=== PATIENT | female | born 1985 | race Hispanic/Latino ===

== ENCOUNTER 2017-08-03 04:46 | Emergency (ER) | payer OTHER ==
[~2017-08-03] VITALS: Ht 149.9 cm; Wt 63.5 kg
[~2017-08-03 04:46] MED LIST: BENTYL20 M1 PO; DILAUDID2 MG PO; DOXYCYCLINE100 M3 PO; FLAG500 PO; FLEXERIL10 MG PO; LEVOTHYROXINE0.05 M1 PO; LYRICA75 MG PO; PERCOCET 325 MG1 TA2 PO; PERCOCET 325 MG1 TA3 PO; PERCOCET 325 MG1 TAB PO; PRENATAL VITAM1 EACH PO; TORADOL10 MG PO; VALIUM2 MG PO; VICODIN 500 MG-1 TAB PO; ZOFRAN4 M1 SL; [UNRECOGNIZED DRUG - OTHER] PO
--- NOTE | 2017-08-03 04:57 | ED GI/GU/ABDOMINAL COMPLAINT ---
History of Present Illness General Chief Complaint: Abdominal Pain/Flank Pain Stated Complaint: "LT SIDE ABD PAIN" Source: patient Exam Limitations: no limitations Vital Signs & Intake/Output Vital Signs & Intake/Output Vital Signs Date Time Temp Pulse Resp B/P B/P Pulse O2 O2 Flow FiO2 Mean Ox Delivery Rate 08/03 0646 98.0 60 18 106/60 99 Room Air 08/03 0454 97.9 82 18 121/78 99 Room Air Allergies Coded Allergies: NO KNOWN ALLERGIES (11/30/15) Reconcile Medications Dicyclomine HCl (Bentyl) 20 MG TABLET 1 TAB PO TID PRN ABDOMINAL PAIN Vit W-Ca,Fe,FA(<1 MG) ( Vitamins) 1 EACH TABLET 1 TAB PO DAILY (Reported) Triage Nurses Notes Reviewed? yes ? n Is pt currently ? No Onset: Gradual Duration: hour(s): Timing: recent history Quality/Severity: stabbing Location: left flank Radiation: no radiation Activities at Onset: none Modifying Factors: Worsens With: movement, palpation. Associated Symptoms: abdominal pain HPI: 32 yo woman presents with left flank pain x 5 hours. "I woke up and was just tossing and turning all night it was so painful... it radiates up into my back." She has no nausea, vomiting, diarrhea, vaginal discharge, dysuria, fever. She is otherwise well. (Rasheed SPANGLER,Dejon Sanchez) Past History Travel History Traveled to [place] past 21 day No Medical History Any Pertinent Medical History? 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 No (Rasheed SPANGLER,Dejon Sanchez) Review of Systems Review of Systems Constitutional: Reports: no symptoms. EENTM: Reports: no symptoms. Respiratory: Reports: no symptoms. Cardiovascular: Reports: no symptoms. GI: Reports: no symptoms. Genitourinary: Reports: no symptoms. Musculoskeletal: Reports: no symptoms. Skin: Reports: no symptoms. Neurological/Psychological: Reports: no symptoms. Hematologic/Endocrine: Reports: no symptoms. Immunologic/Allergic: Reports: no symptoms. All Other Systems: Reviewed and Negative (Rasheed SPANGLER,Dejon Sanchez) Physical Exam Physical Exam General Appearance: well developed/nourished, mild distress, moderate distress Head: atraumatic, normal appearance Eyes: Bilateral: normal appearance. Ears, Nose, Throat, Mouth: hearing grossly normal, moist mucous membrane Neck: normal inspection, supple, full range of motion, normal alignment Respiratory: normal breath sounds, chest non-tender, no respiratory distress, quiet respiration, lungs clear Cardiovascular: regular rate/rhythm, edema Gastrointestinal: normal bowel sounds, soft, non-tender, no organomegaly Pelvic: NORMAL MUCOSA, NO DISCHARGE, MILD LEFT ADNEXAL TENDERNESS. Back: normal inspection, normal range of motion Extremities: normal range of motion, evidence of injury Neurologic/Psych: no motor/sensory deficits, awake, alert, oriented x 3 Skin: intact, normal color, warm/dry Core Measures ACS in differential dx? No Sepsis Present: No Sepsis Focused Exam Completed? No (Rasheed SPANGLER,Dejon Sanchez) Progress Differential Diagnosis: appendicitis, biliary colic, cholecystitis, diverticulitis, gastritis, hepatitis, kidney stone Plan of Care: Orders Procedure Date/time Status TRICHOMONAS 08/03 06 Complete POTASSIUM HYDROXIDE (LUCRECIA) 08/03 625 Complete GENITAL CULTURE 08/03 625 Active CHLAMYDIA-GC DNA PROBE 08/03 625 Active LIPASE 08/03 456 Complete HEPATIC FUNCTION PANEL 08/03 456 Complete CBC WITHOUT DIFFERENTIAL 08/03 456 Complete BASIC METABOLIC PANEL 08/03 456 Complete AMYLASE 08/03 456 Complete URINE 08/03 455 Complete URINALYSIS 08/03 455 Complete Current Medications Sig/Efren Start time Last Medication Dose Stop Time Status Admin Morphine Sulfate 4 MG ONCE ONE 08/03 0845 UNVr (Morphine) 08/03 0846 Laboratory Tests 08/03/17 0525: Anion Gap 11, Estimated GFR > 60, BUN/Creatinine Ratio 24.3, Glucose 99, Calcium 9.8, Total Bilirubin 0.3, Direct Bilirubin 0.2, AST 16, ALT 15, Alkaline Phosphatase 99, Total Protein 7.7, Albumin 4.5, Amylase 53, Lipase 120, CBC w Diff NO MAN DIFF REQ, RBC 4.17 L, MCV 91.2, MCH 30.2, MCHC 33.2, RDW 14.7 H, MPV 8.1, Gran % 51.6, Lymphocytes % 38.7, Monocytes % 6.8, Eosinophils % 2.2, Basophils % 0.7, Absolute Granulocytes 3.3, Absolute Lymphocytes 2.5, Absolute Monocytes 0.4, Absolute Eosinophils 0.1, Absolute Basophils 0 08/03/17 0457: Urine Color YEL, Urine Clarity CLEAR, Urine pH 6.5, Ur Specific [place] 1.025, Urine Protein TRACE H, Urine Ketones NEG, Urine Nitrite NEG, Urine Bilirubin NEG, Urine Urobilinogen 1.0, Ur Leukocyte Esterase NEG, Ur Microscopic SEDIMENT EXAMINED, Urine RBC RARE, Urine WBC RARE, Ur Epithelial Cells FEW, Urine Bacteria FEW H, Urine Hemoglobin NEG, Urine Glucose NEG, Urine Test NEGATIVE Microbiology 08/03 634 GENITAL: GC DNA Probe - RECD 08/03 634 GENITAL: Chlamydia DNA Probe ([facility]) - RECD 08/03 634 GENITAL: LUCRECIA Preparation - COMP 08/03 634 GENITAL: Trichomonas Preparation - COMP 08/03 634 GENITAL: Genital Culture - RECD Diagnostic Imaging: Viewed by Me: CT Scan. Discussed w/RAD: CT Scan. Radiology Impression: PATIENT: LUIS MIGUEL GARRETT PRESENT AGE: 32 PATIENT ACCOUNT NO: [id number] : 84 LOCATION: [facility] [place] ORDERING PHYSICIAN: Dejon Iqbal MD SERVICE DATE: 08/03/17 EXAM TYPE: CAT - CT ABD & PELVIS W/O IV CONTRAS EXAMINATION: CT ABDOMEN AND PELVIS WITHOUT CONTRAST CLINICAL INFORMATION: Left flank pain COMPARISON: Ultrasound 2015. CT 09/30/2014. TECHNIQUE: Multidetector volumetric imaging was performed from the superior aspect of the liver through the pubic symphysis. Sagittal and coronal reformatted images were obtained on the technologist's workstation. DLP: 278 mGy-cm FINDINGS: LUNG BASES: The visualized lung bases are unremarkable. LIVER, GALLBLADDER, AND BILIARY TREE: The liver is normal in size, shape, and attenuation. No focal hepatic lesion or biliary ductal dilatation is present. The gallbladder is unremarkable with no evidence of radiopaque gallstones, gallbladder wall thickening, or obvious pericholecystic inflammatory changes. PANCREAS: Unremarkable. SPLEEN: Unremarkable. ADRENAL GLANDS: Unremarkable. KIDNEYS AND URETERS: The kidneys are normal in size, shape, and attenuation. No hydronephrosis, hydroureter, or calculi seen. No perinephric stranding. BLADDER: Unremarkable. GASTROINTESTINAL TRACT: The small and large bowel are unremarkable. The appendix is unremarkable. ABDOMINAL WALL: No significant hernia is appreciated. LYMPH NODES: Normal. VASCULAR: Unremarkable. PELVIC VISCERA: The uterus and adnexa are unremarkable. OSSEOUS STRUCTURES: Unremarkable. IMPRESSION: No acute findings of the abdomen or pelvis. No hydronephrosis or nephrolithiasis. No inflammatory changes DICTATED BY: Michael Mello MD DATE/TIME DICTATED:08/03/17542 HAND ENDBAND CUTTER: LONNIE DATE/TIME TRANSCRIBED:08/03/17542 CONFIDENTIAL, DO NOT COPY WITHOUT APPROPRIATE AUTHORIZATION. <Electronically signed in Other Vendor System> SIGNED BY: Michael Mello MD 08/03/17547 Initial ED EKG: none Hand-Off Endorsed To: Hong Alaniz MD Endorsed Time: 0700 Pending: ultrasound (Rasheed SPANGLER,Dejon Sanchez) Diagnostic Imaging: Viewed by Me: Ultrasound. Discussed w/RAD: Ultrasound. Radiology Impression: PATIENT: LUIS MIGUEL GARRETT PRESENT AGE: 32 PATIENT ACCOUNT NO: [id number] : 84 LOCATION: [facility] [place] ORDERING PHYSICIAN: Dejon Iqbal MD SERVICE DATE: 08/03/17 EXAM TYPE: US - US-TRANSVAGINAL EXAMINATION: US PELVIS CLINICAL INFORMATION: Left lower quadrant pain. Question ovarian torsion. Last menstrual period last Tuesday. History of endometriosis. 3 C-sections. Pelvic pain since midnight. COMPARISON: CT of the abdomen and pelvis of 08/31/2017 and pelvic ultrasound 12/01/2015. TECHNIQUE: Transabdominal and transvaginal pelvic ultrasound. FINDINGS: The uterus is normal in size and appearance, measuring 8.8 x 4.0 x 5.6 cm longitudinally, anteroposteriorly and transversely. The endometrial stripe thickness is normal, measuring 0.6 cm in thickness. No focal myometrial mass is seen. The ovaries are visualized and appear normal, with the right ovary measuring 2.2 x 1.3 x 2.7 cm for a calculated volume of 3.9 mL. A left adnexal follicle/cyst measures 1.6 x 0.9 x 1.6 cm. The left adnexa could not be seen due to prominent bowel gas. There is normal arterial and venous spectral waveforms at the right adnexa. No right-sided adnexal mass is seen. There is no significant pelvic free fluid. IMPRESSION: 1. Normal appearance of the uterus and right adnexa noting a right-sided 1.6 cm adnexal follicle/cyst. 2. The left adnexa could not be identified due to overlying bowel gas and therefore left- sided ovarian torsion could not be excluded. DICTATED BY: Nahomi Gibson MD DATE/TIME DICTATED:08/03/17824 HAND ENDBAND CUTTER:LONNIE DATE/TIME TRANSCRIBED:08/03/17824 CONFIDENTIAL, DO NOT COPY WITHOUT APPROPRIATE AUTHORIZATION. <Electronically signed in Other Vendor System> SIGNED BY: Nahomi Gibson MD 08/03/17 0837 Comments: Patient has been updated on lab, CAT scan and ultrasound results. Questions been answered. Patient is stable for discharge and she will follow-up with her sports medicine trainer. (Katty SPANGLER,Hong Wharton) Departure Departure Disposition: HOME OR SELF CARE Condition: Stable Clinical Impression Primary Impression: Abdominal pain Departure Forms: Customer Survey General Discharge Information (Rasheed SPANGLER,Dejon Sanchez) Departure Referrals: Demetrice Conde MD (PCP/Family) Eliceo SPANGLER,José Luis Sanchez Additional Instructions: FOLLOW UP WITH YOUR GYNOCOLOGIST' TAKE PERCOCET NEEDED FOR PAIN RETURN IF SYMPTOMS WORSEN OR FOR ANY CONCERNS Prescriptions: Current Visit Scripts Oxycodone HCl/Acetaminophen (Percocet 5-325 MG Tablet) 1-2 TAB PO Q6P PRN PAIN #16 TAB (Katty SPANGLER,Hong Wharton)
[2017-08-03 05:39] LABS: ABSOLUTE BASOPHIL COUNT 0 /CUMM (0.0-0.2); ABSOLUTE EOSINOPHIL COUNT 0.1 /CUMM (0.0-0.7); ABSOLUTE GRANULOCYTE CT 3.3 /CUMM (1.4-6.5); ABSOLUTE LYMPH COUNT 2.5 /CUMM (1.2-3.4); ABSOLUTE MONOCYTE COUNT 0.4 /CUMM (0.10-0.60); BASOPHIL % 0.7 % (0.0-2.0); EOSINOPHIL % 2.2 % (0-5); GRANULOCYTE % 51.6 % (42.2-75.2); MEAN CORPUSCULAR HGB 30.2 PG (27.0-31.0); MEAN CORPUSCULAR HGB CONC 33.2 G/DL (33.0-37.0); MEAN CORPUSCULAR VOLUME 91.2 FL (81.0-99.0); MEAN PLATELET VOLUME 8.1 FL (7.4-10.4); PLATELET COUNT 246 /CUMM (130-400); RBC DISTRIBUTION WIDTH 14.7 % (11.5-14.5); RED BLOOD CELL CT 4.17 /CUMM (4.20-5.40); WHITE BLOOD CELL COUNT 6.5 /CUMM (4.8-10.8)
--- NOTE | 2017-08-03 05:48 | CT SCAN REPORT ---
EXAMINATION: CT ABDOMEN AND PELVIS WITHOUT CONTRAST CLINICAL INFORMATION: Left flank pain COMPARISON: Ultrasound 03/22/2016. CT 09/30/2014. TECHNIQUE: Multidetector volumetric imaging was performed from the superior aspect of the liver through the pubic symphysis. Sagittal and coronal reformatted images were obtained on the technologist's workstation. DLP: 278 mGy-cm FINDINGS: LUNG BASES: The visualized lung bases are unremarkable. LIVER, GALLBLADDER, AND BILIARY TREE: The liver is normal in size, shape, and attenuation. No focal hepatic lesion or biliary ductal dilatation is present. The gallbladder is unremarkable with no evidence of radiopaque gallstones, gallbladder wall thickening, or obvious pericholecystic inflammatory changes. PANCREAS: Unremarkable. SPLEEN: Unremarkable. ADRENAL GLANDS: Unremarkable. KIDNEYS AND URETERS: The kidneys are normal in size, shape, and attenuation. No hydronephrosis, hydroureter, or calculi seen. No perinephric stranding. BLADDER: Unremarkable. GASTROINTESTINAL TRACT: The small and large bowel are unremarkable. The appendix is unremarkable. ABDOMINAL WALL: No significant hernia is appreciated. LYMPH NODES: Normal. VASCULAR: Unremarkable. PELVIC VISCERA: The uterus and adnexa are unremarkable. OSSEOUS STRUCTURES: Unremarkable. IMPRESSION: No acute findings of the abdomen or pelvis. No hydronephrosis or nephrolithiasis. No inflammatory changes
--- NOTE | 2017-08-03 08:37 | ULTRASOUND REPORT ---
EXAMINATION: US PELVIS CLINICAL INFORMATION: Left lower quadrant pain. Question ovarian torsion. Last menstrual period last Tuesday. History of endometriosis. 3 C-sections. Pelvic pain since midnight. COMPARISON: CT of the abdomen and pelvis of 08/31/2017 and pelvic ultrasound 12/01/2015. TECHNIQUE: Transabdominal and transvaginal pelvic ultrasound. FINDINGS: The uterus is normal in size and appearance, measuring 8.8 x 4.0 x 5.6 cm longitudinally, anteroposteriorly and transversely. The endometrial stripe thickness is normal, measuring 0.6 cm in thickness. No focal myometrial mass is seen. The ovaries are visualized and appear normal, with the right ovary measuring 2.2 x 1.3 x 2.7 cm for a calculated volume of 3.9 mL. A left adnexal follicle/cyst measures 1.6 x 0.9 x 1.6 cm. The left adnexa could not be seen due to prominent bowel gas. There is normal arterial and venous spectral waveforms at the right adnexa. No right-sided adnexal mass is seen. There is no significant pelvic free fluid. IMPRESSION: 1. Normal appearance of the uterus and right adnexa noting a right-sided 1.6 cm adnexal follicle/cyst. 2. The left adnexa could not be identified due to overlying bowel gas and therefore left-sided ovarian torsion could not be excluded.
[2017-08-03] MEDS ORDERED: PERCOCET 5-3251 EACH PO (08:44)
[2017-08-03 09:30] VITALS: BP 110/74
== END 2017-08-03 09:08 ==
LOC: ERH 04:46
PROVIDERS: Pediatrics
DX: R10.32 Left lower quadrant pain (principal)
CPT/HCPCS: 87070; 74176; 81001; 81025; 87491; 87591; 96361; 96374; 96375; 96376; J0131; J1885

== ENCOUNTER 2018-02-13 20:46 | Emergency (ER) | payer OTHER ==
[~2018-02-13] VITALS: Ht 149.9 cm; Wt 64.9 kg
[~2018-02-13 20:46] MED LIST changes: +PERCOCET 5-3251 EACH PO
[2018-02-13] MEDS ORDERED: INDOMETHACIN50 M1 PO (22:01)
--- NOTE | 2018-02-13 22:02 | ED UPPER/LOWER EXTREMITY COMPL ---
History of Present Illness General Chief Complaint: Lower Extremity Injury Stated Complaint: KNEE PAIN Source: patient Exam Limitations: no limitations Vital Signs & Intake/Output Vital Signs & Intake/Output Vital Signs Date Time Temp Pulse Resp B/P B/P Pulse O2 O2 Flow FiO2 Mean Ox Delivery Rate 02/13 2054 96.0 78 20 128/85 97 Room Air Allergies Coded Allergies: NO KNOWN ALLERGIES (11/30/15) Reconcile Medications Dicyclomine HCl (Bentyl) 20 MG TABLET 1 TAB PO TID PRN ABDOMINAL PAIN Indomethacin 50 MG CAPSULE 1 CAP PO TID KNEE PAIN with food Oxycodone HCl/Acetaminophen (Percocet 5-325 MG Tablet) 5 MG-325 MG TABLET 1-2 TAB PO Q6P PRN PAIN Vit W-Ca,Fe,FA(<1 MG) ( Vitamins) 1 EACH TABLET 1 TAB PO DAILY (Reported) Triage Note: PT TO ED C/O LEFT KNEE PAIN FOR 5+ MONTHS. WAS TOLD IN OCTOBER SHE HAD A TORN MENISCUS. DID NOT FOLLOW UP IT FELT A LITTLE BETTER. NOW WORSE AGAIN. NO RECENT INJURY. Triage Nurses Notes Reviewed? yes : No Patient currently breastfeeds: No HPI: Patient presents for evaluation of worsening knee pain over the past 2 months. Patient states that she was evaluated at a walk-in clinic about 2 months ago and was told that she likely has a torn meniscus. She was treated with a knee brace crutches and nonsteroidal anti-inflammatory medication and began to feel better. Although she was told to follow-up with an photo specialist, she did not because she was feeling better. However beginning about 2 weeks ago she had gradual worsening of the pain to the point now where it's severely painful and beginning to interfere with her activities of daily living. She is having trouble sleeping at night due to the pain. The pain feels like knee tightness and she gets occasional clicking and locking. She has been taking 800 mg of ibuprofen every 6 hours with only minor improvement. She denies associated fever redness or swelling of the knee. Past History Travel History Traveled to [place] past 21 day No Medical History Any Pertinent Medical History? 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 No Review of Systems Review of Systems Constitutional: Reports: no symptoms. EENTM: Reports: no symptoms. Respiratory: Reports: no symptoms. Cardiovascular: Reports: no symptoms. Gastrointestinal/Abdominal: Reports: no symptoms. Genitourinary: Reports: no symptoms. Musculoskeletal: Reports: see HPI. Skin: Reports: no symptoms. Neurological/Psychological: Reports: no symptoms. Hematologic/Endocrine: Reports: no symptoms. Immunological: Reports: no symptoms. All Other Systems: Reviewed and Negative Physical Exam Physical Exam General Appearance: see below Comments: Gen.: Well-nourished, well-developed, no acute respiratory distress. Head: Normocephalic, atraumatic. Eyes: Normal inspection bilaterally Ears: Normal inspection bilaterally Nose: Normal inspection Throat/mouth : Moist mucosa Neck: Supple, full range of motion, no goiter Heart: Regular rate and rhythm Lungs: Quiet respirations Back: Normal range of motion Extremities: Left knee: No erythema ecchymoses or obvious knee effusion. The knee is diffusely tender to palpation but is otherwise stable on examination. Patient is also tender over the medial and lateral collateral ligaments. Neurologic: Cranial nerves grossly intact, speech is clear Skin: warm and dry Psychiatric: Calm, cooperative, no apparent delusions or hallucinations Progress Differential Diagnosis: contusion, dislocation, fracture, sprain Plan of Care: Current Medications Sig/Efren Start time Last Medication Dose Stop Time Status Admin Indomethacin Sodium 50 MG ONCE ONE 02/13 2200 UNVr (Indocin 25 MG Cap) 02/13 2201 Departure Departure Disposition: HOME OR SELF CARE Condition: Stable Clinical Impression Primary Impression: Chronic meniscal tear of knee Qualifiers: Meniscus of knee: unspecified Meniscus tear of knee type: unspecified type Laterality: left Qualified Code: M23.207 - Derangement of unspecified meniscus due to old tear or injury, left knee Referrals: Shruthi SPANGLER,Fede Patient Has No Primary Care Dr (PCP) Additional Instructions: Rest your knee. Use the knee brace and crutches. Discontinue the ibuprofen and begin taking indomethacin as prescribed for pain. Consider taking an over-the- counter antacid medication such as Zantac or Pepcid. Follow-up with Dr. MUHAMMAD as soon as possible for reevaluation of your knee. Return if any concerns or sudden worsening. Thank you for choosing the [facility] for your care. It was a pleasure to serve you today. Jitendra Conklin M.D. [facility] Departure Forms: Customer Survey General Discharge Information Prescriptions: Current Visit Scripts Indomethacin 1 CAP PO TID #21 CAP with food
[2018-02-13 22:34] VITALS: BP 124/82
== END 2018-02-13 22:41 ==
LOC: ERH 20:46
DX: M23.201 Derangement of unspecified lateral meniscus due to old tear or injury, left knee (principal)